=== PATIENT | female | born 1960 | race Hispanic/Latino ===

== ENCOUNTER 2018-11-06 19:55 | Emergency (ER) | payer SELFPAY ==
[2018-11-06 19:58] VITALS: BMI 24.2
[2018-11-06 19:59] VITALS: TEMP 96
[2018-11-06] MEDS ORDERED: Tdap Vaccine 0.5 ml Vial (10-64 yrs) IM ONE ×2 (21:14→21:58)
--- NOTE | 2018-11-06 21:37 | ED PDOC ---
HPI: Psych/Substance Abuse Time Seen by Provider: 11/06/18 20:51 Chief Complaint (Nursing): Trauma History Per: Patient Additional Complaint(s): As per triage report pt. brought for possible ETOH intoxication and head injury. Pt. states she does not remember what happened or how she fell down. Admits to drinking alcohol. Currently c/o L sided facial pain and headache. Denies extremity pain, chest pain, abd pain, numbness, tingling, anticoagulant use, neck pain. Past Medical History Reviewed: Historical Data, Nursing Documentation, Vital Signs Vital Signs: Last Vital Signs Temp 96 F L 11/06/18 19:58 Pulse 71 11/06/18 19:58 Resp 18 11/06/18 19:58 BP 122/71 11/06/18 19:58 Pulse Ox 96 11/06/18 19:58 - Surgical History Surgical History: No Surg Hx - Family History Family History: States: No Known Family Hx - Home Medications Home Medications: Ambulatory Orders Medication Instructions Recorded Amoxicillin/Clavulanate [Augmentin 1 tab PO BID #20 tab 11/07/18 500 MG-125 MG] - Allergies Allergies/Adverse Reactions: Allergies Allergy/AdvReac Type Severity Reaction Status Date / Time No Known Allergies Allergy Verified 11/06/18 19:57 Review of Systems ROS Statement: Except As Marked, All Systems Reviewed And Found Negative Neurological: Positive for: Headache Physical Exam - Physical Exam Appears: Positive for: Well, Non-toxic, No Acute Distress Head Exam: Negative for: ATRAUMATIC, NORMAL INSPECTION (L sided facial, forehead swelling with mild tenderness; no laceration to head or face; superficial abrasions noted to L side of face), NORMOCEPHALIC Skin: Positive for: Normal Color, Warm Eye Exam: Positive for: Normal appearance, EOMI, PERRL. Negative for: Periorbital swelling, Periorbital tenderness ENT: Positive for: Normal ENT Inspection, TM Is/Are (no hemotympanum b/l) Neck: Positive for: Normal, Painless ROM Cardiovascular/Chest: Positive for: Regular Rate, Rhythm, Chest Non Tender (no ecchymosis or flail chest) Respiratory: Positive for: Normal Breath Sounds. Negative for: Respiratory Distress Gastrointestinal/Abdominal: Positive for: Normal Exam (no ecchymosis), Soft. Negative for: Tenderness Back: Positive for: Normal Inspection, Other (no c-spine tenderness). Negative for: L CVA Tenderness, R CVA Tenderness, Vertebral Tenderness Extremity: Positive for: Normal ROM Neurologic/Psych: Positive for: Alert, Oriented (x2 (pt. does not know what hospital she is in)), Other (slurred speech; AOB). Negative for: Aphasia, Fac ial Droop - Laboratory Results Result Diagrams: 11/06/18 21:50 11/06/18 21:50 - ECG O2 Sat by Pulse Oximetry: 96 - Progress ED Course And Treament: Labs, CT head/cervical/maxillofacial w/o contrast, tetanus prophylaxis ordered. On re-evaluation, pt. AOx3. Gait steady, unassisted. Informed of results. Advised to f/u with PMD for further evaluation but is to return to ED imm ediately if symptoms worsen. Abrasions cleansed, irrigated, and dressed by lubrication technician. Medical Decision Making Medical Decision Making: Time: 2245 CT HEAD RESULTS FINDINGS: BRAIN No acute intraparenchymal hemorrhage. No mass lesion. No CT evidence for acute territorial infarct. No midline shift or extra-axial collections. VENTRICLES: No hydrocephalus. ORBITS: There is left periorbital/preseptal soft tissue swelling/hematoma present. Both globes appear to be intact. The retro-orbital soft tissues appeared within normal limits as well. SINUSES AND MASTOIDS: The paranasal sinuses and mastoid air cells are clear. BONES: No fracture. SOFT TISSUES: See ORBITS above. IMPRESSION: 1. No acute intracranial abnormality. 2. Left periorbital/preseptal soft tissue swelling/hematoma. Electronically signed on Nov 06, 2018 11:20:35 PM EST by: Richard Nunez M.D., RANDY Certified By [employer] Trained MRI and CT Specialist Time: 2247 CT MAXILLOFACIAL RESULTS FINDINGS: BONES: No acute fracture or aggressive appearing osseous lesion. The mandible is int act. Dense streak artifact arising from dental work causes image degradation of the oral cavity. Incidental discovery is made of some degenerative disc disease at the C4-5 disc interspace. SOFT TISSUES: Left periorbital/preseptal edema and hematoma are again noted. SINUSES: A suspected 1.9 x 1.7 cm mucous retention cyst or polyp is seen in the inferior right maxillary sinus. Some mucoperiosteal thickening is also present in the inferior maxillary sinuses bilaterally consistent with sinusitis. The remaining paranasal sinuses appeared satisfactorily developed and aerated. ORBITS: See SOFT TISSUES above. The orbits appeared intact. No retrobulbar hematoma or mass. IMPRESSION: 1. Left periorbital/preseptal edema and hematoma. 2. No acute fracture is detected. 3. Suspected 1.9 x 1.7 cm mucous retention cyst or polyp in the inferior right maxillary sinus. Associated minimal inferior bilateral maxillary sinusitis. Electronically signed on Nov 06, 2018 11:43:50 PM EST by: Richard uNnez M.D., RANDY Certified By [employer] Fellowship Trained MRI and CT Specialist Time: 2354 CT CERVICAL SPINE RESULTS FINDINGS: ALIGNMENT: Bony alignment is anatomic. DEGENERATIVE CHANGES: No significant canal stenosis or neural foraminal narrowing evident. Some mild bilateral uncovertebral facet arthropathy is present at C4-5. There is some intervertebral disc space narrowing also present at C4-5 consistent with moderate degenerative disc disease. Mild degenerative arthritis is seen within the atlanto-dens interval. Marginal osteophytic spurring arises from the C4, C5, C6 vertebrae. SOFT TISSUES: The prevertebral soft tissues are within normal limits. BONES: No acute fracture or aggressive appearing osseous lesion. The hyoid bone appears intact. IMPRESSION: 1. No acute cervical spine abnormality. 2. Evidence of moderate degenerative disc disease at C4-5. 3. Mild bilateral uncovertebral facet arthropathy at C4-5. Mild degenerative arthritis within the atlanto-dens interval. Electronically signed on Nov 06, 2018 11:55:17 PM EST by: Richard Nunez M.D., RANDY Certified By [employer]BR [employer] Fellowship Trained MRI and CT Specialist Disposition - Clinical Impression Clinical Impression: Head injury, Facial contusion, Alcohol intoxication, Sinusitis - Patient ED Disposition Is Patient to be Admitted: No - Disposition Referrals: [facility] [Outside] Disposition: Routine/Home Disposition Time: 00:17 Condition: IMPROVED Additional Instructions: FOLLOW UP WITH PMD FOR FURTHER EVALUATION RETURN TO ED IMMEDIATELY IF SYMPTOMS WORSEN MENDO[place] ODOM, thank you for letting us take care of you today. Your provider was Bruce Greene MD and you were treated for POSS ETOH/HEAD INJURY. The emergency medical care you received today was directed at your acute symptoms. If you were prescribed any medication, please fill it and take as directed. It may take several days for your symptoms to resolve. Return to the Emergency Department if your symptoms worsen, do not improve, or if you have any other problems. Please contact your doctor or call one of the physicians/clinics you have been referred to that are listed on the Patient Visit Information form that is included in your discharge packet. Bring any paperwork you were given at discharge with you along with any medications you are taking to your follow up visit. Our treatment cannot replace ongoing medical care by a primary care provider outside of the emergency department. Thank you for allowing the [facility] team to be part of your care today. If you had an X-Ray or CT scan: A Radiologist will review the ED reading if any change in treatment is needed we will contact you. If you had a blood, urine, or wound culture: It will take several days for the results, if any change in treatment is needed we will contact you. If you had an STI test: It will take 48 hours for the results. Please call after 1 week if you have not heard back. Prescriptions: Amoxicillin/Clavulanate [Augmentin 500 MG-125 MG] 1 tab PO BID #20 tab Instructions: Alcohol Use - When Is Drinking a Problem?, Sinusitis, Adult (DC), Closed Head Injury, Contusion (DC), Effects of Alcohol on Your Health Forms: [employer] (Gu[place]ian)
[2018-11-06 21:59] LABS: BASO % 0.8 % (0.0-2.0); EOS # 0.1 K/uL (0.0-0.7); HEMOGLOBIN 14.8 g/dL (12.0-16.0); LYMPH % 35.1 % (20.0-40.0); MEAN CELL VOLUME 97.9 fl (81.0-99.0); MEAN CORPUSCULAR HEMOGLOBIN 33.1 pg (27.0-31.0); MEAN CORPUSCULAR HGB CONC 33.8 g/dL (33.0-37.0); MEAN PLATELET VOLUME 8.1 fl (7.2-11.7); MONO # 0.4 K/uL (0.0-0.8); MONO % 7.1 % (0.0-10.0); NEUT # 3.2 K/uL (1.8-7.0); NRBC % 0.3 % (0.0-0.0); RBC 4.49 Mil/uL (3.80-5.20); RED CELL DISTRIBUTION WIDTH 12.6 % (11.5-14.5); WHITE BLOOD COUNT 5.8 K/uL (4.8-10.8)
[2018-11-06 22:08] LABS: ALB/GLOB RATIO 1.4 (1.0-2.1); ALBUMIN 4.4 g/dL (3.5-5.0); ALT/SGPT 45 U/L (9-52); AST/SGOT 38 U/L (14-36); BLOOD UREA NITROGEN 10 mg/dl (7-17); GFR NON-AFRICAN AMERICAN > 60
[2018-11-06 23:21] VITALS: RESP 15
[2018-11-06 23:57] LABS: SQUAMOUS EPITHIAL < 1 /hpf (0-5); URINE BACTERIA MOD (<OCC); URINE BILIRUBIN NEGATIVE (NEGATIVE); URINE BLOOD NEGATIVE (NEGATIVE); URINE CLARITY CLEAR (Clear); URINE COLOR STRAW (YELLOW); URINE GLUCOSE (UA) NEG (NEGATIVE); URINE LEUKOCYTE ESTERASE NEG Leu/uL (Negative); URINE PROTEIN NEGATIVE (NEGATIVE); URINE UROBILINOGEN 0.2-1.0 mg/dL (0.2-1.0)
[2018-11-07 00:18] LABS: BARBITURATES, UR NEGATIVE (NEGATIVE); BENZODIAZEPINES, UR NEGATIVE (NEGATIVE); OPIATES, UR NEGATIVE (NEGATIVE); PHENCYCLIDINE, UR NEGATIVE (NEGATIVE)
[2018-11-07 00:38] VITALS: BP 130/76; PULSE 83
--- NOTE | 2018-11-07 10:25 | CT ---
Date of service: 11/06/2018 PROCEDURE: CT HEAD WITHOUT CONTRAST. HISTORY: trauma COMPARISON: None available. TECHNIQUE: Axial computed tomography images were obtained through the head/brain without intravenous contrast. Radiation dose: Total exam DLP = 1003.48 mGy-cm. This CT exam was performed using one or more of the following dose reduction techniques: Automated exposure control, adjustment of the mA and/or kV according to patient size, and/or use of iterative reconstruction technique. FINDINGS: HEMORRHAGE: No intracranial hemorrhage. BRAIN: No mass effect or edema. No atrophy or chronic microvascular ischemic changes. VENTRICLES: Unremarkable. No hydrocephalus. CALVARIUM: Unremarkable. PARANASAL SINUSES: Unremarkable as visualized. No significant inflammatory changes. MASTOID AIR CELLS: Unremarkable as visualized. No inflammatory changes. OTHER FINDINGS: Left periorbital soft tissue swelling. IMPRESSION: Left periorbital soft tissue swelling. No calvarial fracture. No acute intracranial pathology or hemorrhage.
--- NOTE | 2018-11-07 10:28 | CT ---
Date of service: 11/06/2018 PROCEDURE: CT Cervical Spine without contrast HISTORY: trauma COMPARISON: None available. TECHNIQUE: Axial computed tomography images were obtained of the cervical spine without the use of intravenous contrast. Coronal and sagittal reformatted images were created and reviewed. Radiation dose: Total exam DLP = 349.95 mGy-cm. This CT exam was performed using one or more of the following dose reduction techniques: Automated exposure control, adjustment of the mA and/or kV according to patient size, and/or use of iterative reconstruction technique. FINDINGS: VERTEBRAE: No fracture. Normal alignment. No destructive bony lesion. DISCS/SPINAL CANAL/NEURAL FORAMINA: Multilevel disc space narrowing, worst at C4-5. PARASPINAL SOFT TISSUES: Unremarkable. OTHER FINDINGS: Small right hypodense thyroid nodule. IMPRESSION: No acute fracture. Multilevel degenerative changes, worst at C4-5. Small right hypodense thyroid nodule. Dedicated thyroid ultrasound can be obtained for further evaluation.
--- NOTE | 2018-11-07 10:31 | CT ---
Date of service: 11/06/2018 PROCEDURE: CT MAXILLOFACIAL BONES WITHOUT CONTRAST HISTORY: trauma COMPARISON: None available. TECHNIQUE: Contiguous axial CT images of the maxillofacial bones were obtained. Coronal and sagittal reformats were generated. Radiation dose: Total exam DLP = 706.96 mGy-cm. This CT exam was performed using one or more of the following dose reduction techniques: Automated exposure control, adjustment of the mA and/or kV according to patient size, and/or use of iterative reconstruction technique. FINDINGS: NASAL BONES: Unremarkable. ORBITS: Left periorbital soft tissue swelling. PARANASAL SINUSES/ MASTOIDS: 1.9 x 1.5 cm right maxillary sinus polyp or retention cyst MAXILLA: Unremarkable. MANDIBLE/ TEMPOROMANDIBULAR JOINTS: Unremarkable. SKULL BASE: Unremarkable. TEMPORAL BONES: Middle ears and mastoid grossly unremarkable. OTHER FINDINGS: None. IMPRESSION: Left periorbital soft tissue swelling. No calvarial fracture. Right maxillary sinus polyp or retention cyst.
[2018-11-08 14:00] VITALS: O2SAT 96
== END 2018-11-07 00:38 | disposition home or self-care (01) ==
LOC: H.ER 19:55
DX: F10.129 Alcohol abuse with intoxication, unspecified (principal); S00.83XA Contusion of other part of head, initial encounter; S09.90XA Unspecified injury of head, initial encounter; W19.XXXA Unspecified fall, initial encounter; Y92.89 Other specified places as the place of occurrence of the external cause; J32.0 Chronic maxillary sinusitis; E04.1 Nontoxic single thyroid nodule; J33.8 Other polyp of sinus
CPT/HCPCS: 70450; 70486; 72125; 80053; 81003; 82948; 85025; 90471; 90715; 99285; G0480